=== PATIENT | male | born 1990 | race Caucasian/White ===

== ENCOUNTER → 2017-08-10 00:03 | Outpatient (CLI) | payer OTHER, SELFPAY ==
[2017-08-11 18:01] LABS: Varicella Zoster IgG 913 index (Immune >165)
== END ==
PROVIDERS: Visit Provider Emergency Medicine
DX: Z01.84 Encounter for antibody response examination (principal)
CPT/HCPCS: 86787

== ENCOUNTER → 2018-06-05 15:12 | Outpatient (CLI) | payer OTHER, SELFPAY ==
[2018-06-05 20:19] LABS: Free Thyroxine Index 3.3 ug/dL (5.93-13.13); Thyroid Stimulating Hormone 1.95 uIU/ml (0.358-3.740); Triiodothryronine (T3) Uptake 41 % (31-39)
== END ==
PROVIDERS: Visit Provider Internal Medicine Adolescent Medicine
DX: E03.9 Hypothyroidism, unspecified (principal)
CPT/HCPCS: 36415; 84436; 84443; 84479

== ENCOUNTER → 2018-10-10 14:09 | Outpatient (CLI) | payer OTHER, SELFPAY ==
--- NOTE | 2018-10-10 14:12 | MR_ITS ---
MR shoulder RT wo con COMPARISON: None HISTORY: Right shoulder pain ORDERING PHYSICIAN: Tawanda Hoyt MD PATIENT AGE: 28 years TECHNIQUE: Routine multiplanar normal in echo sequences are performed without contrast FINDINGS: There is a mild amount of bone marrow edema at the acromioclavicular joint region. There is mild narrowing of the subacromial space at 5 mm. No evidence of rotator cuff tear. There is slight increase signal intensity within the supraspinatus tendon which could be due to some mild tendinopathy/tendinosis. The infraspinatus, subscapularis, and teres minor tendons are unremarkable. There is a mild degree motion artifact which somewhat obscures fine detail especially along the inferior glenohumeral region. There is a questionable defect within the posterior aspect of the glenoid labrum inferiorly with some slight increased T2 signal of the adjacent glenoid at this area. This raises the question of a possible Bankart lesion. MR arthrogram may confirm if clinically warranted. Bicipital tendon is in place. No fracture apparent. There is some mild subcortical increased T2 signal along the anterior aspect of the humeral head suggesting early subchondral cystic change. IMPRESSION: 1. No evidence of rotator cuff tear. 2. Mild subacromial stenosis with mild tendinopathy/tendinosis of the supraspinatus tendon and some minimal subchondral cystic change of the humeral head. 3. There is a question of a Bankart lesion of the inferior glenoid labrum posteriorly. There is a mild degree of motion artifact which somewhat obscures fine detail at this region. If clinically desired, MR arthrogram may provide further evaluation.
== END ==
PROVIDERS: PCP Internal Medicine Adolescent Medicine; Visit Provider Internal Medicine Adolescent Medicine
DX: M25.511 Pain in right shoulder (principal)
CPT/HCPCS: 73221

== ENCOUNTER → 2018-10-24 05:10 | Outpatient (CLI) | payer OTHER, SELFPAY ==
--- NOTE | 2018-10-24 05:23 | XR_ITS ---
XR shoulder RT min 2V COMPARISON: Right scan right shoulder 10/10/2018 HISTORY: Right shoulder pain TECHNIQUE: 3 views right shoulder FINDINGS: The clavicle is intact. There is suggestion of slight before meals separation with the lateral clavicle showing slight superior orientation in relationship to the acromion somewhat more prominent than was seen on MRI scan. Has a been interval injury? Probably help have a comparison view of the left shoulder. Otherwise the humeral head and glenoid appear normal. There are no soft tissue calcifications. IMPRESSION: Question minor before meals separation versus normal variation and suggest clinical correlation possibly follow-up compression views of left shoulder.
== END ==
PROVIDERS: PCP Internal Medicine Adolescent Medicine; Visit Provider Orthopaedic Surgery
DX: M25.511 Pain in right shoulder (principal)
CPT/HCPCS: 73030

== ENCOUNTER → 2018-11-02 06:42 | Outpatient (CLI) | payer OTHER, SELFPAY ==
[2018-11-02 06:46] VITALS: BMI 24.4
== END ==
LOC: ER 06:44 → UTC.OUT 11-09 08:29
PROVIDERS: PCP Internal Medicine Adolescent Medicine; Visit Provider Emergency Medicine
DX: M25.511 Pain in right shoulder (principal)
CPT/HCPCS: G0463

== ENCOUNTER → 2018-11-17 04:27 | Outpatient (CLI) | payer OTHER, SELFPAY | PROVIDERS: PCP Internal Medicine Adolescent Medicine; Visit Provider Emergency Medicine | DX: M25.511 Pain in right shoulder (principal) | CPT/HCPCS: 96372 ==

== ENCOUNTER → 2018-12-12 13:07 | Outpatient (CLI) | payer OTHER, SELFPAY ==
--- NOTE | 2018-12-12 13:14 | MR_ITS ---
MR shoulder RT w con, IR arthrogram shoulder RT HISTORY: ITS.REASON: right shoulder pain, possible labral tear on previous MRI. ORDERING PHYSICIAN: Karyn Harris MD PATIENT AGE: 28 years Comparison: 10/10/2018 Arthrogram technique: Following obtaining informed consent and timeout under aseptic conditions and local anesthesia with 1% buffered lidocaine was fluoroscopic guidance, a 23-gauge needle was directed into the right shoulder joint by the anterior approach. A mixture of 10 cc of gadolinium, Optiray 320, and 1% lidocaine was injected into the joint. The patient tolerated the procedure well without evidence of any complication. Arthrographic findings: There is is normal distribution of the contrast with no evidence of rotator cuff tear. There was no resistance to contrast injection. Following this the patient was taken to the MRI suite for MRI was performed of the right shoulder. Routine multiplanar multiecho sequences are performed. In addition, ABER images are performed. MRI Arthrogram findings: No evidence of rotator cuff tear. The glenohumeral ligaments have an unremarkable appearance. The glenoid labrum appears intact. There was a question of a vague lesion on the previous exam that is not demonstrated on today's exam. The bicipital tendon is in place with no evidence of displacement or tear. There are a few small subchondral cysts in the humeral head on the posterior aspect of the humeral head medial to the insertion of the infraspinatus tendon. IMPRESSION: 1. No evidence of rotator cuff tear or glenoid labral tear. 2. There are a few small subchondral cyst head posteriorly consistent with some mild degenerative changes. 3. Otherwise negative MRI arthrogram of the right shoulder
== END ==
PROVIDERS: PCP Internal Medicine Adolescent Medicine; Visit Provider Orthopaedic Surgery
DX: M25.511 Pain in right shoulder (principal); M67.911 Unspecified disorder of synovium and tendon, right shoulder
CPT/HCPCS: 73040; 73222; Q9967

== ENCOUNTER 2019-03-20 17:00 | Outpatient (RCR) | payer OTHER, SELFPAY | END 2019-03-20 17:05 | disposition home or self-care (01) | LOC: PT 17:00 | PROVIDERS: Visit Provider Orthopaedic Surgery | DX: M67.911 Unspecified disorder of synovium and tendon, right shoulder (principal); M25.511 Pain in right shoulder | CPT/HCPCS: 97010; 97012; 97014; 97016; 97033; 97035; 97110; 97140; 97163; G0283 ==

== ENCOUNTER → 2021-04-10 16:58 | Outpatient (CLI) | payer OTHER, SELFPAY ==
[2021-04-10 17:15] LABS: Influenza A, PCR Not Detected (NotDetected); Influenza B, PCR Not Detected (NotDetected)
[2021-04-10 17:59] LABS: Coronavirus 19, PCR Detected (NotDetected)
== END ==
PROVIDERS: PCP Internal Medicine Adolescent Medicine; Visit Provider Nurse Practitioner
DX: Z20.822 Contact with and (suspected) exposure to COVID-19 (principal); U07.1 COVID-19
CPT/HCPCS: C9803; U0003; U0005

== ENCOUNTER → 2021-10-26 19:30 | Outpatient (CLI) | payer OTHER, SELFPAY ==
[2021-10-26 19:53] LABS: Basophils # 0.1 K/mm3 (0-0.2); Eosinophils # 0.1 K/mm3 (0.0-0.4); Eosinophils % 1.1 % (0.1-12.0); Hematocrit 44.4 % (42.0-52.0); Hemoglobin 14.9 g/dL (14.1-18.0); Lymphocytes # 2.2 K/mm3 (0.7-4.5); Lymphocytes % 32.1 % (10-50); Mean Corpuscular HGB Conc 33.5 g/dL (31.8-35.4); Mean Corpuscular Hemoglobin 31.1 pg (27.0-31.2); Mean Corpuscular Volume 92.8 fl (80-94); Mean Platelet Volume 8.1 fl (7.4-10.4); Monocytes # 0.5 K/mm3 (0.1-1.0); Monocytes % 7.9 % (1.7-9.3); Neutrophils # 3.9 K/mm3 (1.8-7.8); Neutrophils % 56.9 % (37.0-80.0); Platelet Count 250 K/mm3 (142-424); Red Blood Count 4.79 M/mm3 (4.60-6.20); Red Cell Distribution Width 12.8 % (11.5-17.5); White Blood Count 6.8 K/mm3 (4.8-10.8)
[2021-10-26 20:12] LABS: Chloride 104 mmol/L (98-107); Potassium 4.5 mmoL/L (3.5-5.1); Sodium 138 mmol/L (136-145)
[2021-10-26 20:15] LABS: Anion Gap 10.5 mEq/L (5-15); Blood Urea Nitrogen 10 mg/dl (9-20); Carbon Dioxide 28 mmol/L (22.0-30.0); Estimated Glomerular Filt Rate 88 ml/min (>60); GFR (African American) 106 ML/MIN (>60)
[2021-10-26 20:16] LABS: Calcium 8.8 mg/dl (8.4-10.2); Glucose 80 mg/dl (74-100)
== END ==
PROVIDERS: PCP Internal Medicine Adolescent Medicine; Visit Provider Orthopaedic Surgery
DX: M25.511 Pain in right shoulder (principal)
CPT/HCPCS: 36415; 80048; 85025; C9803; U0003; U0005

== ENCOUNTER 2021-11-01 18:59 | Emergency (ER) | payer OTHER, SELFPAY ==
--- NOTE | 2021-11-01 19:04 | HMH.EDSOB ---
ED Disposition Clinical Impression: Anxiety Dyspnea Qualifiers: Dyspnea type: shortness of breath Qualified Code(s): R06.02 - Shortness of breath Disposition: Home, Self-Care Condition on Discharge: Good Instructions: DI for Shortness of Breath Additional Instructions: Your work-up today did not show any life-threatening conditions. Your troponin was normal. You had some tachycardia which has resolved on its own. Your chest x-ray is normal. Your lab work is also normal. Follow-up with your primary care doctor in about 2 to 3 days if you do not feel better. Return to the emergency department if you feel worse in any way. - Critical Care Critical Care Time: No Attestation: On , the high probability of a clinically significant, sudden or life threatening deterioration of the following system(s) required my full and direct attention, intervention and personal management. The time I documented below is in addition to time spent performing reported procedures but includes the following listed in this critical care notation. Medical Decision Making - Medical Records Medical records reviewed: Yes: I reviewed the patient's medical records. - Alex Inquiry Pt receiving controlled substance: No Vital Signs: 11/01/21 19:10 Temperature 97.8 F Temperature Source Oral Pulse Rate [Left Brachial] 125 H Respiratory Rate 26 H Blood Pressure [Left Arm] 144/90 H Blood Pressure Mean [Left Arm] 108 Blood Pressure Source [Left Arm] Automatic Cuff Blood Pressure Position [Left Arm] Sitting 02 Sat by Pulse Oximetry 100 Oxygen Delivery Method Room Air - Lab Data Lab results reviewed: Yes: I reviewed the patient's lab results. Lab Results 11/01/21 19:01: WBC 9.4, RBC 4.77, Hgb 15.0, Hct 44.1, MCV 92.4, MCH 31.4 H, MCHC 33.9, RDW 12.7, Plt Count 296, MPV 7.9, Neut % (Auto) 63.2, Lymph % (Auto) 27.0, [place] % (Auto) 6.9, Eos % (Auto) 0.8, Baso % (Auto) 2.0, Neut # (Auto) 6.0, Lymph # (Auto) 2.6, [place] # (Auto) 0.7, Eos # (Auto) 0.1, Baso # (Auto) 0.2 11/01/21 19:01: Sodium 138, Potassium 3.2 L, Chloride 100, Carbon Dioxide 29, Anion Gap 12.2, BUN 8 L, Creatinine 0.90, Estimated Creat Clear 131, Estimated GFR 99, Est GFR ( Amer) 120, Glucose 132 H, Calcium 8.7, Total Bilirubin 0.9, AST 36, ALT 25, Alkaline Phosphatase 63, Troponin I < 0.01, Total Protein 7.6, Albumin 4.5, Globulin 3.1, Albumin/Globulin Ratio 1.5, Lipase 113 Result diagrams: 11/01/21 19:01 11/01/21 19:01 Orders (Tests/Meds): ED MEDICATIONS Generic Name Dose Route Start Last Admin Trade Name Freq PRN Reason Stop Dose Admin Sodium Chloride 10 ml 11/01/21 19:19 Sodium Chloride 0.9% 10ml Vial IV 12/01/21 19:18 NEEDED PRN to Dilute Lorazepam inj Discontinued Medications Generic Name Dose Route Start Last Admin Trade Name Freq PRN Reason Stop Dose Admin Aspirin 324 mg 11/01/21 19:05 11/01/21 19:23 Aspirin 81mg Chewable Tablet PO 11/01/21 19:06 324 mg ONCE ONE Administration Lorazepam 0.5 mg 11/01/21 19:19 11/01/21 19:23 Lorazepam 2mg/Ml Vial IV 11/01/21 19:20 0.5 mg ONCE ONE Administration ORDERS Category Date Time Status Troponin I Q3H Lab 11/01/21 22:15 Ordered ECG Request by /Stefanie Stat Y 11/01/21 19:05 Ordered - Radiology Data #1 Image(s): Chest Image Reviewed: Yes I reviewed the patient's radiology image, Yes I have reviewed radiologist's interpretation Preliminary Findings: Normal/NAD - ECG Data Tracing #1 I reviewed this ECG and interpreted as documented below: Patient is EKG was performed at 7 PM. It shows a sinus tachycardia with a ventricular rate of 104 bpm. There is some artifact present. Some mild ST depressions in leads II, III, aVF V2 V3 V4 V5. Otherwise there is no evidence of ischemia, no S1Q3T3. Normal Sinus Rhythm: Yes Arrhythmias present: sinus tach Medical Decision Narrative: The patient's work-up in the emergency department did not reveal any
--- NOTE | 2021-11-01 19:05 | XR_ITS ---
PROCEDURE INFORMATION: Exam: XR Chest Exam date and time: 11/01/2021 7:08 PM Age: 31 years old Clinical indication: Dyspnea and shortness of breath; Prior surgery; Surgery date: 3-7 days post-operative; Surgery type: Shoulder surgery last week. ; Additional info: Dyspnea, cp TECHNIQUE: Imaging protocol: XR of the chest. Views: 1 view. COMPARISON: FINDINGS: Lungs: Unremarkable. No consolidation. Pleural spaces: Unremarkable. No pleural effusion. No pneumothorax. Heart/Mediastinum: Unremarkable. No cardiomegaly. Bones/joints: Unremarkable. IMPRESSION: No acute findings.
--- NOTE | 2021-11-01 19:05 | ECG_ITS ---
APPROVED REPORT Exam: Resting ECG HR:104 bpm ECG Measurements Heart Rate 104 AXES PA 148 P 72 QRSd 102 QRS 70 QT 337 T 57 QTc 397 Conclusion SINUS TACHYCARDIA ABNORMAL RHYTHM ECG UNCONFIRMED REPORT Electronically signed by : Tawanda Hoyt MD 11/02/2021 15:58:51
[2021-11-01 19:10] VITALS: BP 144/90; PULSE 125; RESP 26; TEMP 36.6; O2SAT 100; BMI 22.4
[2021-11-01 19:13] LABS: Basophils # 0.2 K/mm3 (0-0.2); Eosinophils # 0.1 K/mm3 (0.0-0.4); Eosinophils % 0.8 % (0.1-12.0); Hematocrit 44.1 % (42.0-52.0); Lymphocytes # 2.6 K/mm3 (0.7-4.5); Mean Corpuscular HGB Conc 33.9 g/dL (31.8-35.4); Mean Corpuscular Hemoglobin 31.4 pg (27.0-31.2); Mean Corpuscular Volume 92.4 fl (80-94); Mean Platelet Volume 7.9 fl (7.4-10.4); Monocytes # 0.7 K/mm3 (0.1-1.0); Monocytes % 6.9 % (1.7-9.3); Neutrophils % 63.2 % (37.0-80.0); Platelet Count 296 K/mm3 (142-424); Red Blood Count 4.77 M/mm3 (4.60-6.20); Red Cell Distribution Width 12.7 % (11.5-17.5); White Blood Count 9.4 K/mm3 (4.8-10.8)
[2021-11-01 19:23] LABS: Chloride 100 mmol/L (98-107); Sodium 138 mmol/L (136-145)
[2021-11-01 19:24] LABS: Potassium 3.2 mmoL/L (3.5-5.1)
[2021-11-01 19:26] LABS: Alanine Aminotransferase 25 U/L (12-78); Alkaline Phosphatase 63 U/L (38-126); Anion Gap 12.2 mEq/L (5-15); Aspartate Amino Transferase 36 U/L (17-59); Bilirubin,Total 0.9 mg/dl (0.2-1.3); Blood Urea Nitrogen 8 mg/dl (9-20); Carbon Dioxide 29 mmol/L (22.0-30.0); Creatinine Clearance Estimated 131 mL/min (50-200); Estimated Glomerular Filt Rate 99 ml/min (>60); GFR (African American) 120 ML/MIN (>60); Lipase 113 U/L (23-300)
[2021-11-01 19:27] LABS: Albumin Level 4.5 g/dl (3.5-5.0); Albumin/Globulin Ratio 1.5 (1.1-1.8); Calcium 8.7 mg/dl (8.4-10.2); Globulin 3.1 g/dL (1.3-3.2); Glucose 132 mg/dl (74-100); Total Protein,Serum 7.6 g/dl (6.3-8.2)
[2021-11-01 19:39] LABS: Troponin I < 0.01 ng/ml (0.00-0.034)
[2021-11-01 20:21] VITALS: BP 134/95; PULSE 80; RESP 18; TEMP 36.5; O2SAT 98
== END 2021-11-01 20:24 | disposition home or self-care (01) ==
PROVIDERS: Emergency Provider Emergency Medicine; PCP Internal Medicine Adolescent Medicine
DX: R07.9 Chest pain, unspecified (principal); R06.02 Shortness of breath; R42 Dizziness and giddiness; R00.0 Tachycardia, unspecified; I10 Essential (primary) hypertension; F41.9 Anxiety disorder, unspecified; F17.210 Nicotine dependence, cigarettes, uncomplicated
CPT/HCPCS: 71045; 80053; 83690; 84484; 85025; 93005; 96365; 96374; 96375; 99285

== ENCOUNTER 2022-02-01 10:00 | Outpatient (RCR) | payer OTHER, SELFPAY | END 2022-02-01 10:05 | disposition home or self-care (01) | LOC: OT 10:00 | PROVIDERS: PCP Internal Medicine Adolescent Medicine; Visit Provider Physician Assistant | DX: M25.511 Pain in right shoulder (principal); Z98.890 Other specified postprocedural states | CPT/HCPCS: 97010; 97014; 97016; 97110; 97140; 97164; 97165; 97530; G0283 ==

== ENCOUNTER → 2022-02-08 10:44 | Outpatient (CLI) | payer OTHER, SELFPAY ==
[2022-02-08 11:22] LABS: Hemoglobin 16.2 g/dL (14.1-18.0); Mean Corpuscular HGB Conc 35.2 g/dL (31.8-35.4); Mean Corpuscular Hemoglobin 31.5 pg (27.0-31.2); Mean Corpuscular Volume 89.4 fl (80-94); Platelet Count 248 K/mm3 (142-424); Red Blood Count 5.14 M/mm3 (4.60-6.20); Red Cell Distribution Width 12.4 % (11.5-17.5); White Blood Count 6.8 K/mm3 (4.8-10.8)
[2022-02-08 11:28] LABS: Chloride 101 mmol/L (98-107); Sodium 138 mmol/L (136-145)
[2022-02-08 11:31] LABS: Blood Urea Nitrogen 11 mg/dl (9-20); Estimated Glomerular Filt Rate 99 ml/min (>60); GFR (African American) 120 ML/MIN (>60)
[2022-02-08 11:32] LABS: Calcium 9.3 mg/dl (8.4-10.2); Carbon Dioxide 30 mmol/L (22.0-30.0); Glucose 154 mg/dl (74-100)
== END ==
PROVIDERS: PCP Orthopaedic Surgery; Visit Provider Internal Medicine Adolescent Medicine
DX: Z01.812 Encounter for preprocedural laboratory examination (principal); Z20.822 Contact with and (suspected) exposure to COVID-19; M25.511 Pain in right shoulder
CPT/HCPCS: 80048; 85014; 85018; 85048; 85049; C9803; U0003; U0005

== ENCOUNTER 2022-04-05 14:00 | Outpatient (RCR) | payer OTHER, SELFPAY | END 2022-04-05 14:05 | disposition home or self-care (01) | LOC: OT 14:00 | PROVIDERS: PCP Orthopaedic Surgery; Visit Provider Physician Assistant | DX: M75.01 Adhesive capsulitis of right shoulder (principal) | CPT/HCPCS: 97010; 97014; 97110; 97140; 97164; 97165; G0283 ==

== ENCOUNTER 2022-12-14 15:45 | Emergency (ER) | payer OTHER, SELFPAY ==
[2022-12-14 15:55] VITALS: BP 119/78; PULSE 65; RESP 18; TEMP 36.9; O2SAT 99; BMI 23.7
[2022-12-14 16:06] LABS: UTC Strep Screen (Rapid) Negative (Negative)
--- NOTE | 2022-12-14 16:53 | EXP.UTC ---
Discharge Plan Disposition Patient Disposition: Home, Self-Care Condition: Good Prescriptions Prescriptions: New cefdinir 300 mg capsule 300 mg PO BID Qty: 20 0RF fluticasone propionate [Flonase Allergy Relief] 50 mcg/actuation spray,suspension 1 - 2 spray intranasal DAILY Qty: 16 0RF Rx Instructions: administer into each nostril daily Referrals Follow up/Referrals: Tawanda Hoyt MD [Primary Care Provider] - See instructions Activity Restrictions/Add. Instructions Additional Instructions/Restrictions: *Monitor Temp, Over the counter Motrin or Tylenol as directed/as needed Tylenol every 4 hours and Motrin every 6 hours (as long as your family doctor has told you that you can take it) for fever or pain. and straight to ER if unable to lower temp less than 101.0 after medication given *Warm salt water gargles may help to soothe the throat *Throat Lozenges? *Warm fluids like tea with honey may help to soothe the throat? *Sleep elevated *Humidifier/Vaporizer *Flonase 2 sprays in each nostril daily but be aware that it may take 2-3 days before you notice improvement Your throat swab was sent for culture. Those results are typically sent to your primary care. Be sure to follow up in 2-3 days with your family doctor/primary care physician if no improvement so they can review those result and treat if necessary. If you don?t have a primary care doctor, I recommend you get one but in the mean time, you will have to return to a walk in clinic Follow up IMMEDIATELY for new or worsening symptoms or no Noticeable improvement over the next 48-72 hours. 911 for difficulty breathing or swallowing Clinical Impressions Clinical Impression: Otitis media Instructions Patient Instructions: Middle Ear Infection, Sore Throat Discharge ED Provider: Syeda Manzano [facility] General Stated complaint: sore throat Mode of Arrival: Ambulatory Source of Information: Patient Limitations: No Limitations Time Seen by Provider: 12/14/22 16:53 Description of Symptoms (Recalled from Triage Doc. by RN): PATIENT C/O SORE THROAT X 4 DAYS HEENT Symptoms (Recalled from RN notes): Yes Resp Symptoms (Recalled from RN notes): No Skin Symptoms (Recalled from RN notes): No MS Symptoms (Recalled from RN notes): No Functional Status (Recalled from RN notes): WNL History of Present Illness Provider Complaint: Patient states that he has been having sore throat and ear pain for about 4-5 days States that today his throat and ear was hurting worse so he came in to get checked Related Data Previous Rx's Medication Instructions Recorded cefdinir 300 mg capsule 300 mg PO BID #20 caps 12/14/22 fluticasone propionate 50 1 - 2 spray intranasal DAILY #16 12/14/22 mcg/actuation nasal grams spray,suspension (Flonase Allergy Relief) Allergies Allergy/AdvReac Type Severity Reaction Status Date / Time No Known Allergies Allergy Verified 02/19/19 14:51 Worker's Comp Is this a Worker's Comp case?: No [facility] Disclaimer: The information contained in this section may have been updated after the patient was seen, as this information can be updated by other users. Social History Smoking Status: Current some day smoker tobacco type: cigarettes alcohol intake: current current occupational status: employed Travel in the last 8 weeks: None household members: family housing: house ROS Obtained: Yes All systems reviewed & no additional complaints except as documented and Yes Systems reviewed as appropriate & no additional complaints except as documented Constitutional Constitutional: Reports system reviewed and no additional complaints, except as documented and Reports as per HPI ENT Ears, Nose, Mouth, and Throat: Reports system reviewed and no additional complaints, except as documented, Reports as per HPI, Reports otalgia and Reports sore throat Cardiovascular Cardiovascular: Reports system reviewe
[2022-12-14 17:00] VITALS: BP 119/78; PULSE 65; RESP 18; TEMP 36.9; O2SAT 99
== END 2022-12-14 17:02 | disposition home or self-care (01) ==
PROVIDERS: Emergency Provider Nurse Practitioner; PCP Internal Medicine Adolescent Medicine
DX: H66.93 Otitis media, unspecified, bilateral (principal); R07.0 Pain in throat; F17.210 Nicotine dependence, cigarettes, uncomplicated
CPT/HCPCS: 87880; 99204; 99212; G0463

== ENCOUNTER 2024-12-15 11:24 | Outpatient (CLI) | payer OTHER, SELFPAY ==
--- NOTE | 2024-12-15 11:34 | XR_ITS ---
PROCEDURE INFORMATION: Exam: XR Right Hand Exam date and time: 12/15/2024 11:24 AM Age: 34 years old Clinical indication: Pain; Hand; Right; Prior surgery; Surgery date: 6+ months; Surgery type: Pins third finger; Additional info: Softball injury, pain palm of hand TECHNIQUE: Imaging protocol: Radiologic exam of the right hand. Views: 3 or more views. COMPARISON: No relevant prior studies available. FINDINGS: Bones/joints: Surgical pins proximal phalanx 3rd digit. No acute fracture or dislocation. Soft tissues: Normal. IMPRESSION: No acute findings.
== END 2024-12-15 23:59 | disposition home or self-care (01) ==
LOC: RAD 11:25
PROVIDERS: PCP Internal Medicine Adolescent Medicine; Visit Provider Student in an Organized Health Care Education/Training Program
DX: S69.91XA Unspecified injury of right wrist, hand and finger(s), initial encounter (principal); Y93.64 Activity, baseball
CPT/HCPCS: 73130

== ENCOUNTER 2024-12-27 11:16 | Outpatient (CLI) | payer OTHER, SELFPAY ==
--- NOTE | 2024-12-27 11:32 | XR_ITS ---
FINAL REPORT CLINICAL HISTORY: POSITIVE PPD COMPARISON: 11/01/2021 FINDINGS: PA and lateral views of the chest were obtained. The cardiac and mediastinal silhouettes are within normal limits. The lungs are clear. There is no pleural effusion or pneumothorax. No acute osseous abnormality is identified. IMPRESSION: No radiographic evidence of acute cardiac or pulmonary disease. Reviewed, Interpreted and Dictated by Chata Crane MD Transcribed by Michelle Vilchis Authenticated and [facility]
== END 2024-12-27 23:59 | disposition home or self-care (01) ==
LOC: RAD 11:17
PROVIDERS: PCP Internal Medicine Adolescent Medicine; Visit Provider Internal Medicine Adolescent Medicine
DX: R76.11 Nonspecific reaction to tuberculin skin test without active tuberculosis (principal)
CPT/HCPCS: 71046

== ENCOUNTER 2024-12-28 09:24 | Outpatient (CLI) | payer OTHER, SELFPAY ==
[2024-12-28 10:03] LABS: Basophils # 0.1 K/mm3 (0-0.2); Basophils % 1.1 % (0.1-2.0); Eosinophils # 0.1 Kmm3 (0.0-0.4); Eosinophils % 1.1 % (0.1-12.0); Hematocrit 43.4 % (42.0-52.0); Hemoglobin 14.4 g/dL (14.1-18.0); Immature Granulocytes # 0.01 10^3uL; Immature Granulocytes % 0.2 %; Lymphocytes # 2.1 K/mm3 (0.7-4.5); Lymphocytes % 38.8 % (10-50); Mean Corpuscular HGB Conc 33.2 g/dL (31.8-35.4); Mean Corpuscular Hemoglobin 29.8 pg (27.0-31.2); Mean Corpuscular Volume 89.7 fl (80-94); Mean Platelet Volume 10.2 fl (7.4-10.4); Monocytes # 0.6 K/mm3 (0.1-1.0); Monocytes % 10.8 % (1.7-9.3); Neutrophils # 2.5 K/mm3 (1.8-7.8); Nucleated Red Blood Cells # 0 10^3/uL; Nucleated Red Blood Cells % 0 %; Platelet Count 265 K/mm3 (142-424); Red Blood Count 4.84 M/mm3 (4.60-6.20); Red Cell Distribution Width-SD 39.3 fL; White Blood Count 5.3 K/mm3 (4.8-10.8)
[2024-12-28 10:36] LABS: Alanine Aminotransferase 22 U/L (12-78); Albumin Level 4.7 g/dl (3.5-5.0); Albumin/Globulin Ratio 1.7 (1.1-1.8); Alkaline Phosphatase 65 U/L (38-126); Anion Gap 8.8 mEq/L (5-15); Aspartate Amino Transferase 31 U/L (17-59); Bilirubin,Total 1.1 mg/dl (0.2-1.3); Blood Urea Nitrogen 9 mg/dl (9-20); Calcium 9.4 mg/dl (8.4-10.2); Carbon Dioxide 30 mmol/L (22.0-30.0); Chloride 106 mmol/L (98-107); Chol/HDL Ratio 2.3 (1-3.5); Cholesterol 142 mg/dl (140-200); Estimated Glomerular Filt Rate 97 ml/min (>60); GFR (African American) 118 ML/MIN (>60); Globulin 2.7 g/dL (1.3-3.2); Glucose 91 mg/dl (74-100); HDL Cholesterol 61 mg/dl (40-60); Potassium 4.8 mmoL/L (3.5-5.1); Sodium 140 mmol/L (136-145); Total Protein,Serum 7.4 g/dl (6.3-8.2); Triglycerides 57 mg/dl (30-150); VLDL Cholesterol 11 mg/dL (0-40)
[2024-12-28 10:47] LABS: Direct LDL Cholesterol 57.93 mg/dL (100-129)
[2024-12-28 11:11] LABS: Thyroid Stimulating Hormone 1.25 uIU/mL (0.465-4.68)
[2024-12-28 13:09] LABS: Free Thyroxine Index 2.3 ug/dL (5.93-13.13); T4 (Thyroxine) 6.7 ug/dl (5.53-11.0); Triiodothryronine (T3) Uptake 35 % (23.5-40.5)
[2024-12-28 13:23] LABS: Thyroid Stimulating Hormone 1.25 uIU/mL (0.465-4.68)
[2025-01-01 12:16] LABS: QuantiFERON-TB Gold Plus Negative (Negative)
== END 2024-12-28 23:59 | disposition home or self-care (01) ==
LOC: LAB 09:25
PROVIDERS: PCP Internal Medicine Adolescent Medicine; Visit Provider Internal Medicine Adolescent Medicine
DX: Z00.00 Encounter for general adult medical examination without abnormal findings (principal); E03.9 Hypothyroidism, unspecified; R76.11 Nonspecific reaction to tuberculin skin test without active tuberculosis
CPT/HCPCS: 36415; 80053; 80061; 84436; 84443; 84479; 85025; 86480

== ENCOUNTER 2025-06-29 10:40 | Outpatient (CLI) | payer OTHER, SELFPAY ==
--- OUTSIDE RECORDS SUMMARY | 2025-06-29 10:42 | XMS_ITS | Clinical Summary ---
Author Organization Healthcare Address [address] [place] [address] Care Team Providers Care [facility] Name Role Phone Navjot Campoverde MD Primary Care Provider [phone] Allergies No known active allergies Medications ibuprofen 200 MG tablet Take 3 tablets (600 mg total) by mouth every 6 (six) hours if needed for mild pain. 100 tablet 10/29/2021 Active traMADol (Ultram) 50 MG tablet Take 1 tablet (50 mg total) by mouth 3 (three) times a day if needed for severe pain or moderate pain. 42 tablet 03/04/2022 Active Active Problems Problem Noted Date Diagnosed Date Adhesive capsulitis of shoulder 03/05/2022 Resolved Problems Problem Noted Date Diagnosed Date Resolved Date S/P arthroscopy of shoulder 11/13/2021 04/14/2025 Acute pain of right shoulder 09/29/2021 10/29/2021 Overview (09/29/2021): Added automatically from request for surgery [id number] Social History Tobacco Use Types Packs/Day Years Used Date Smoking Tobacco: Never Smokeless Tobacco: Never Tobacco Cessation:Counseling Given: Not Answered Alcohol Use Standard Drinks/Week Comments Yes 0 (1 standard drink = 0.6 oz pur e alcohol) 12 pack per week Sex and Gender Information Value Date Recorded Sex Assigned at Not on file Legal Sex Male 2:57 PM EST Gender Identity Not on file Sexual Orientation Not on file Last Filed Vital Signs Vital Sign Reading Time Taken Comments Blood Pressure 121/83 03/19/2022 7:42 AM EDT Pulse 69 03/19/2022 7:42 AM EDT Temperature 36.8 C (98.3 F) 03/19/2022 7:42 AM EDT Respiratory Rate 13 03/04/2022 8:05 AM EDT Oxygen Saturation 100% 03/19/2022 7:42 AM EDT Inhaled Oxygen Concentration - - Weight 79.4 kg (175 lb) 03/19/2022 7:42 AM EDT Height 182.9 cm (6') 03/19/2022 7:42 AM EDT Body Mass Index 23.73 03/19/2022 7:42 AM EDT Plan of Treatment Health Maintenance Due Date Last Done Comments [facility]-Depression Screening 1991 [facility]-Infant/Child/Adol SDOH Screenings 1991 [facility]-DTaP,Tdap,and Td Vaccines (2 - Tdap) 02/19/2003 02/18/2003 [facility]-Varicella Vaccines (1 of 2 - 13+ 2-dose series) 2004 [facility]- SDOH Screenings 2009 [facility]-Adult SDOH Screenings 2009 HPV Vaccines (1 - 3-dose SCDM series) 2018 PCT-[id number] Vaccine (2 - 2024- season) 2025 06/24/2021 [facility]-Influenza Vaccine (#1) 2025 [facility]-Zoster Vaccines (1 of 2) 2041 [facility]-Hepatitis B Vaccines Completed 004, 04/11/2003, 02/18/2003 [facility]-HIB Vaccines Aged Out No longer e ligible based on patient's age to complete this topic [facility]-Hepatitis A Vaccines Aged Out No longer eligible based on patient's age to complete this topic [facility]-IPV Vaccines Aged Out No longer e ligible based on patient's age to complete this topic [facility]-Pneumococcal Vaccine: Pediatrics (0 to 5 Years) and At-Risk Patients (6 to 49 Years) Aged Out No longer eligible b ased on patient's age to complete this topic [facility]-Rotavirus Vaccines Aged Out No lo nger eligible based on patient's age to complete this topic Medical Devices Implanted Type Area Personal Banking Advisor Device Identifier Shelf Expiration Date Model / Serial / Lot Screw Screw Right: Hand [employer] Pro Flex W/1 1.3mm Hifi Ribbon - [id number] Implanted:Qty : 3 on 10/29/2021 by Bradley Kennedy MD at [facility] Right: Shoulder [employer] [id number] 07/21/2026 [id number] / / [id number] [employer] Pro Flex W/1 1.3mm Hifi Ribbon - [id number] Implanted:Qty : 1 on 10/29/2021 by Bradley Kennedy MD at [facility] Right: Shoulder [employer] [facility]-[id number] 07/22/2026 [id number] / / [id number] Insurance [facility] Care Teams Hospital Internship Relationship Specialty Start Date End Date Navjot Campoverde MD [address] [facility] [address], [place] [address] PCP - General 08/11/21
[2025-06-29 10:47] LABS: COC Drug Screen Collection Only
== END 2025-06-29 23:59 | disposition home or self-care (01) ==
LOC: LAB 10:40
PROVIDERS: PCP Internal Medicine Adolescent Medicine
DX: R69 Illness, unspecified (principal)